=== PATIENT | male | born 1985 | race Two or more races ===

== ENCOUNTER → 2018-04-12 | Outpatient (CLI) | payer OTHER ==
--- NOTE | 2018-04-12 15:14 | KCIC ---
EXAMINATION: Magnetic resonance imaging (MRI) of the lumbar spine without contrast 04/12/2018 12:30 PM HISTORY: Transverse process fracture. Low back pain with radiculitis. Fall on March 15. TECHNIQUE: Multiplanar multi-weighted MRI of the lumbar spine was performed without intravenous contrast using the standard lumbar spine protocol. Contrast information: None administered. COMPARISON: CT abdomen/pelvis March 15, 2018 FINDINGS: The alignment of the lumbar spine is normal. Vertebral bodies demonstrate normal signal intensity on all sequences. There are no compression fractures. The conus medullaris terminates at the level of L1. The distal spinal cord signal intensity is normal. There is mild disc desiccation at L5-S1 with minimal height loss Limited views of the abdomen and pelvis show no soft tissue abnormality. The aorta is normal. Edema is noted in the region of the left L1 and T12 transverse process in keeping with fractures previously seen. L3-L4: The disc is normal in configuration. There is no facet arthropathy. There is no neuroforaminal stenosis. There is no spinal canal stenosis. L4-L5: The disc is normal in configuration. There is no facet arthropathy. There is no neuroforaminal stenosis. There is no spinal canal stenosis. L5-S1: There is mild disc bulge. There is mild facet arthropathy. There is no neuroforaminal stenosis. There is no spinal canal stenosis. IMPRESSION: Mild facet arthropathy without significant disc herniation, neuroforaminal or spinal canal stenosis. Edema is noted in the region of the left L1 and T12 transverse process in keeping with fractures previously seen. Electronically signed by: Kellen Wilson MD (04/12/2018 3:11 PM) [email or web address]
--- NOTE | 2018-04-12 17:32 | KCIC ---
CHEST CT WITHOUT CONTRAST Clinical indications: Left-sided chest and rib pain after a fall on March 15, 2018. TECHNIQUE: Noncontrast helical CT scanning of the chest was performed. Multiplanar 2-D reconstructions were generated. Without contrast, the sensitivity to detect organ pathology is decreased. PQRS compliance Statement One or more of the following individualized dose reduction techniques were utilized for this study: 1. Automated exposure control 2. Adjustment of the mA and/or kV according to patient size 3. Use of iterative reconstruction technique COMPARISON: None available. FINDINGS: No enlarged thoracic lymphadenopathy is evident. No focal aneurysmal dilatation of the thoracic aorta is seen. The heart size is normal and no pericardial effusion is seen. There is a nodular lung infiltrate within the posterior segment left lower lobe which measures 16 mm. No pleural effusion or pneumothorax is evident. The proximal bronchial tree is patent. There are subacute healing fractures of the posterior aspect of the left eighth and ninth and 10th and 11th ribs. No displacement is evident. No lytic process is seen. No compression fracture of the thoracic spine is seen. The sternum is intact. There is a fracture of the left L1 transverse process. IMPRESSION: Subacute healing fractures of the left eighth and ninth and 10th and 11th ribs. There is an underlying nodular lung infiltrate measuring 16 mm in size which most likely represents a lung contusion. However, this finding needs to be followed to exclude a neoplastic process. This finding may be followed with a noncontrast chest CT in 3-4 months. Nondisplaced fracture of the left L1 transverse process. Electronically signed by: Charlie Man MD (04/12/2018 5:30 PM) [id number]
== END | disposition home or self-care (01) ==
LOC: KCIC MRI 12:44
PROVIDERS: ATTEND Physical Medicine & Rehabilitation Pain Medicine
DX: S32.018G Other fracture of first lumbar vertebra, subsequent encounter for fracture with delayed healing (principal); S22.42XD Multiple fractures of ribs, left side, subsequent encounter for fracture with routine healing; M46.86 Other specified inflammatory spondylopathies, lumbar region; R60.0 Localized edema; R91.8 Other nonspecific abnormal finding of lung field; X58.XXXD Exposure to other specified factors, subsequent encounter
CPT/HCPCS: 71250; 72148